=== PATIENT | female | born 1965 | race Two or more races ===

== ENCOUNTER 2016-07-14 20:03 | Emergency (ER) | payer MEDICAID ==
[~2016-07-14 20:03] MED LIST: COLACE100 MG PO; COU5 PO; KEFLEX250 MG PO; LAC PO; MOT600 PO; NORCO1 TA2 PO; ZES10 PO
[2016-07-14 23:21] LABS: BASOPHIL % 0.4 % (0-2); PLATELET COUNT 254 x10^3mcL (130-400); RED CELL DISTRIBUTION WIDTH 14.5 % (11.5-14.5)
[2016-07-14 23:30] LABS: CALCIUM 8.1 mg/dL (8.5-10.1); CARBON DIOXIDE 30.3 mmol/L (21-32); CHLORIDE SERUM 110 mmol/L (98-107); CREATININE SERUM 0.7 mg/dL (0.6-1.0); GFR1 > 60 mL/min; GLUCOSE SERUM 89 mg/dL (74-106); POTASSIUM SERUM 3.8 mmol/L (3.5-5.1); SODIUM SERUM 144 mmol/L (136-145)
[2016-07-14 23:34] LABS: ALKALINE PHOSPHATASE 92 U/L (46-116); ALT/SGPT 26 U/L (14-59); AST/SGOT 18 U/L (15-37); BILIRUBIN TOTAL 0.3 mg/dL (0.20-1.00); TOTAL PROTEIN, SERUM 7.1 g/dL (6.4-8.2)
[2016-07-14 23:38] LABS: ALBUMIN 3.1 g/dL (3.4-5.0)
[2016-07-15 00:23] VITALS: BP 127/88
== END 2016-07-15 00:23 | disposition home or self-care (01) ==
LOC: ED 20:03
PROVIDERS: Emergency Medicine
DX: S80.11XA Contusion of right lower leg, initial encounter (principal); I10 Essential (primary) hypertension; Z79.01 Long term (current) use of anticoagulants; X58.XXXA Exposure to other specified factors, initial encounter; Y93.89 Activity, other specified; Y99.8 Other external cause status; Y92.89 Other specified places as the place of occurrence of the external cause

== ENCOUNTER 2016-09-11 02:01 | Emergency (ER) | payer MEDICAID ==
[2016-09-11 03:18] LABS: CALCIUM 8.3 mg/dL (8.5-10.1); CARBON DIOXIDE 30.9 mmol/L (21-32); CHLORIDE SERUM 111 mmol/L (98-107); CREATININE SERUM 0.7 mg/dL (0.6-1.0); GFR1 > 60 mL/min; GLUCOSE SERUM 115 mg/dL (74-106); POTASSIUM SERUM 3.5 mmol/L (3.5-5.1); SODIUM SERUM 143 mmol/L (136-145)
[2016-09-11 03:24] LABS: ALBUMIN 3.3 g/dL (3.4-5.0); ALKALINE PHOSPHATASE 92 U/L (46-116); ALT/SGPT 34 U/L (14-59); AST/SGOT 24 U/L (15-37); BILIRUBIN TOTAL 0.1 mg/dL (0.20-1.00); TOTAL PROTEIN, SERUM 7.1 g/dL (6.4-8.2)
[2016-09-11 03:28] LABS: BASOPHIL % 0.4 % (0-2); PLATELET COUNT 238 x10^3mcL (130-400); RED CELL DISTRIBUTION WIDTH 13.8 % (11.5-14.5)
[2016-09-11 03:34] LABS: CK-MB < 0.5 ng/mL (0-3.6); CREATINE KINASE 81 U/L (26-192)
[2016-09-11 04:27] VITALS: BP 149/73
== END 2016-09-11 04:27 | disposition home or self-care (01) ==
LOC: ED 02:01
PROVIDERS: Emergency Medicine
DX: R00.2 Palpitations (principal); F41.9 Anxiety disorder, unspecified; R25.3 Fasciculation; I10 Essential (primary) hypertension; T48.6X5A Adverse effect of antiasthmatics, initial encounter; Z79.01 Long term (current) use of anticoagulants; Y92.89 Other specified places as the place of occurrence of the external cause
CPT/HCPCS: 36415; 83880; Q0092

== ENCOUNTER 2016-09-29 19:04 | Emergency (ER) | payer MEDICAID ==
[~2016-09-29] VITALS: Ht 160 cm; Wt 98.4 kg
[2016-09-29 20:45] LABS: BASOPHIL % 0.4 % (0-2); PLATELET COUNT 272 x10^3mcL (130-400); RED CELL DISTRIBUTION WIDTH 13.9 % (11.5-14.5)
[2016-09-29 22:13] LABS: CALCIUM 8.8 mg/dL (8.5-10.1); CARBON DIOXIDE 25.9 mmol/L (21-32); CHLORIDE SERUM 103 mmol/L (98-107); CREATININE SERUM 0.6 mg/dL (0.6-1.0); GFR1 > 60 mL/min; GLUCOSE SERUM 92 mg/dL (74-106); POTASSIUM SERUM 3.6 mmol/L (3.5-5.1); SODIUM SERUM 142 mmol/L (136-145)
[2016-09-29 22:17] LABS: ALBUMIN 3.6 g/dL (3.4-5.0); ALKALINE PHOSPHATASE 101 U/L (46-116); ALT/SGPT 38 U/L (14-59); AST/SGOT 31 U/L (15-37); BILIRUBIN TOTAL 0.31 mg/dL (0.20-1.00); LIPASE 220 IU/L (73-393)
[2016-09-29 22:18] LABS: TOTAL PROTEIN, SERUM 8.3 g/dL (6.4-8.2)
[2016-09-30 02:06] VITALS: BP 140/74
== END 2016-09-30 02:06 | disposition home or self-care (01) ==
LOC: ED 19:04
PROVIDERS: Emergency Medicine
DX: R07.89 Other chest pain (principal)
CPT/HCPCS: J1885; J7030; J7613; J7644; Q0092; Q9967

== ENCOUNTER 2017-10-01 22:31 | Emergency (ER) | payer OTHER ==
[2017-10-01 22:41] VITALS: Ht 165.1 cm
[2017-10-02 01:30] VITALS: BP 151/90
== END 2017-10-02 01:30 | disposition home or self-care (01) ==
LOC: ED 22:31
DX: L03.116 Cellulitis of left lower limb (principal); I83.93 Asymptomatic varicose veins of bilateral lower extremities; J45.909 Unspecified asthma, uncomplicated; I10 Essential (primary) hypertension

== ENCOUNTER 2018-05-02 19:51 | Emergency (ER) | payer OTHER ==
[~2018-05-02] VITALS: Ht 162.6 cm; Wt 94.3 kg
[2018-05-02 20:13] VITALS: Ht 162.6 cm; Wt 94.3 kg
[2018-05-02 22:06] VITALS: BP 147/89
== END 2018-05-02 22:06 | disposition home or self-care (01) ==
LOC: ED 19:51
DX: N75.1 Abscess of Bartholin's gland (principal); J45.909 Unspecified asthma, uncomplicated; I10 Essential (primary) hypertension; I25.10 Atherosclerotic heart disease of native coronary artery without angina pectoris

== ENCOUNTER 2018-07-09 11:19 | Emergency (ER) | payer OTHER ==
[~2018-07-09] VITALS: Ht 152.4 cm; Wt 90.7 kg
[2018-07-09 11:29] VITALS: Ht 152.4 cm; Wt 90.7 kg
[2018-07-09 14:55] VITALS: BP 142/84
== END 2018-07-09 14:55 | disposition home or self-care (01) ==
LOC: ED 11:19
DX: S52.121A Displaced fracture of head of right radius, initial encounter for closed fracture (principal); S80.02XA Contusion of left knee, initial encounter; S00.31XA Abrasion of nose, initial encounter; S09.90XA Unspecified injury of head, initial encounter; I10 Essential (primary) hypertension; J45.909 Unspecified asthma, uncomplicated; E66.9 Obesity, unspecified; W01.0XXA Fall on same level from slipping, tripping and stumbling without subsequent striking against object, initial encounter; Y93.89 Activity, other specified; Y92.89 Other specified places as the place of occurrence of the external cause; Y99.8 Other external cause status
CPT/HCPCS: 36415; 90715

== ENCOUNTER 2019-06-06 16:51 | Emergency (ER) | payer OTHER ==
[~2019-06-06] VITALS: Ht 157.5 cm; Wt 90.7 kg
[2019-06-06 17:02] VITALS: BP 169/65; Ht 157.5 cm; Wt 90.7 kg
== END 2019-06-06 18:45 | disposition home or self-care (01) ==
LOC: ED 16:51
DX: I80.3 Phlebitis and thrombophlebitis of lower extremities, unspecified (principal); J45.909 Unspecified asthma, uncomplicated; I10 Essential (primary) hypertension

== ENCOUNTER 2020-02-17 13:27 | Emergency (ER) | payer OTHER ==
[~2020-02-17] VITALS: Ht 160 cm; Wt 90.7 kg
[2020-02-17 14:11] VITALS: BP 151/99; Ht 160 cm; Wt 90.7 kg
== END 2020-02-17 17:34 | disposition home or self-care (01) ==
LOC: ED 13:27
DX: M79.662 Pain in left lower leg (principal); J45.909 Unspecified asthma, uncomplicated; I10 Essential (primary) hypertension

== ENCOUNTER 2020-04-27 08:02 | Emergency (ER) | payer OTHER ==
[~2020-04-27] VITALS: Ht 157.5 cm; Wt 88.5 kg
[2020-04-27 08:13] VITALS: Ht 157.5 cm; Wt 88.5 kg
[2020-04-27 09:53] VITALS: BP 172/89
== END 2020-04-27 09:53 | disposition home or self-care (01) ==
LOC: ED 08:02
DX: I10 Essential (primary) hypertension (principal); J45.909 Unspecified asthma, uncomplicated